=== PATIENT | male | born 1980 | race Caucasian/White ===

== ENCOUNTER → 2017-02-12 | Outpatient (CLI) | payer BC | END | disposition home or self-care (01) | LOC: GMA 10:45 | PROVIDERS: ATTEND Nurse Practitioner Acute Care | DX: E78.2 Mixed hyperlipidemia (principal) ==

== ENCOUNTER → 2019-05-24 | Outpatient (CLI) | payer BC | LOC: GMAM 11:19 | PROVIDERS: ATTEND Family Medicine | DX: Z00.00 Encounter for general adult medical examination without abnormal findings (principal) ==